=== PATIENT | female | born 1990 | race Caucasian/White ===

== ENCOUNTER 2022-07-09 21:21 | Emergency (ER) | payer OTHER ==
[~2022-07-09 21:21] MED LIST: LIDEX0.05% T; NKHM; PREDNICOT20 MG PO; VICODIN 5/500 505 MG PO
[2022-07-09 21:39] VITALS: BP 125/82
[2022-07-09] MEDS ORDERED: CLARITIN10 MG PO (21:39)
[2022-07-09] MEDS ORDERED: IBUPROFEN600 MG PO (22:08)
[2022-07-09] MEDS ORDERED: AMOX-CLAV 875-1 EACH PO (22:08)
== END 2022-07-09 23:05 | disposition home or self-care (01) ==
LOC: ED 21:21
DX: S71.151A Open bite, right thigh, initial encounter (principal); Z79.899 Other long term (current) drug therapy; W54.0XXA Bitten by dog, initial encounter; Y93.89 Activity, other specified; Y92.69 Other specified industrial and construction area as the place of occurrence of the external cause; Y99.9 Unspecified external cause status

== ENCOUNTER 2022-07-19 12:28 | Emergency (ER) | payer BC ==
[~2022-07-19] VITALS: Ht 165.1 cm; Wt 61.2 kg
[~2022-07-19 12:28] MED LIST changes: +AMOX-CLAV 875-1 EACH PO; +CLARITIN10 MG PO; +IBUPROFEN600 MG PO
[2022-07-19 12:53] VITALS: BP 128/81
[2022-07-19] MEDS ORDERED: IBUPROFEN600 MG PO (16:28)
== END 2022-07-19 16:50 | disposition home or self-care (01) ==
LOC: ED 12:28
DX: J98.9 Respiratory disorder, unspecified (principal); Z20.822 Contact with and (suspected) exposure to COVID-19; Z79.899 Other long term (current) drug therapy; Z90.89 Acquired absence of other organs

== ENCOUNTER 2025-06-17 17:42 | Emergency (ER) | payer BC ==
[~2025-06-17] VITALS: Ht 165.1 cm; Wt 65.8 kg
[2025-06-17 18:07] VITALS: BP 153/100
== END 2025-06-17 19:52 | disposition home or self-care (01) ==
LOC: ED 17:42
DX: S93.601A Unspecified sprain of right foot, initial encounter (principal); Z88.0 Allergy status to penicillin; Z79.899 Other long term (current) drug therapy; Z90.89 Acquired absence of other organs; X50.1XXA Overexertion from prolonged static or awkward postures, initial encounter; Y93.01 Activity, walking, marching and hiking; Y92.89 Other specified places as the place of occurrence of the external cause; Y99.8 Other external cause status